=== PATIENT | female | born 1990 | race African-American/Black ===

== ENCOUNTER 2020-10-05 14:46 | Day surgery (SDC) | payer MEDICAID, OTHER ==
[~2020-10-05] VITALS: Ht 165.1 cm; Wt 66.2 kg
[~2020-10-05 14:46] MED LIST: CEPH-368 PO; IBUP-1222 PO; OXYC1TAB14 PO; PREN1TAB56 PO
[2020-10-05 15:20] VITALS: BP 116/75
[2020-10-05] MEDS ORDERED: FENTANYL PF 100 MCG/2ML ONE (15:30)
[2020-10-05] MEDS ORDERED: CHLORHEXIDINE 15 ML UDC MM ONE (15:30)
[2020-10-05] MEDS ORDERED: LACTATED RINGERS 1,000 ML IV SCH (15:30)
[2020-10-05] MEDS ORDERED: MIDAZOLAM 1 MG/ML, 2ML ONE (15:30)
[2020-10-05] MEDS ORDERED: AMPI1.5V BC (15:32)
[2020-10-05] MEDS ORDERED: [UNRECOGNIZED DRUG - OTHER] (15:32)
[2020-10-05] MEDS ORDERED: OXYTOCIN 10 UNITS/ML, 1ML ONE (15:37)
[2020-10-05] MEDS ORDERED: MISOPROSTOL 200 MCG TABLET ONE (15:37)
[2020-10-05] MEDS ORDERED: METHYLERGONOVINE 0.2 MG/ML IM ONE (15:38)
[2020-10-05] MEDS ORDERED: PROMETHAZINE 25 MG/ML, 1ML IVPush PRN (16:00)
[2020-10-05] MEDS ORDERED: HYDROcodone/APAP 7.5-325MG/15ML UDC PO PRN (16:00)
[2020-10-05] MEDS ORDERED: ONDANSETRON 2MG/ML, 2ML IVPush PRN (16:00)
[2020-10-05] MEDS ORDERED: HYDROmorphone 1 MG/ML, 1ML INJ IVPush PRN (16:00)
[2020-10-05] MEDS ORDERED: FENTANYL PF 100 MCG/2ML IV PRN (16:00)
[2020-10-05] MEDS ORDERED: MEPERIDINE/PF 25MG/0.5ML IVPush PRN (16:00)
[2020-10-05] MEDS ORDERED: OXYcodone 5 MG/5 ML ORAL.SOL UDC PO PRN (16:00)
[2020-10-05 16:09] LABS: BASOPHILS % (AUTO) 1 % (0-1); EOSINOPHILS % (AUTO) 1 % (1-7); LYMPHOCYTES % (AUTO) 26 % (22-44); MEAN CORPUSCULAR HEMOGLOBIN 28.5 pg (27.0-34.8); MONOCYTES % (AUTO) 6 % (2-9); NEUTROPHILS % (AUTO) 67 % (42-75); PLATELET COUNT 234 x10^3/uL (130-400); RED BLOOD COUNT 4.47 x10^6/uL (3.82-5.3); RED CELL DISTRIBUTION WIDTH 14.1 % (9.6-15.2)
[2020-10-05] MEDS ORDERED: KETOROLAC 30 MG/1 ML ONE (16:12)
[2020-10-05 16:13] LABS: MD NO
[2020-10-05] MEDS ORDERED: ROCURONIUM 10MG/ML,5ML ONE (16:39)
[2020-10-05] MEDS ORDERED: CEFAZOLIN 1,000 MG ONE (16:39)
[2020-10-05] MEDS ORDERED: PROPOFOL 10 MG/ML, 20ML ONE (16:39)
[2020-10-05] MEDS ORDERED: NEOSTIGMINE 1 MG/ML, 10ML ONE (16:39)
[2020-10-05] MEDS ORDERED: GLYCOPYRROLATE 0.2MG/1ML, 5ML ONE (16:39)
[2020-10-05] MEDS ORDERED: ONDANSETRON 2MG/ML, 2ML ONE (16:39)
[2020-10-05] MEDS ORDERED: DEXAMETHASONE 4 MG/ML, 1ML ONE (16:39)
[2020-10-05] MEDS ORDERED: SUCCINYLCHOLINE 20 MG/ML, 10ML ONE (16:39)
[2020-10-05] MEDS ORDERED: OXYC-293 PO ×2 (16:51)
[2020-10-05] MEDS ORDERED: RHOGAM FROM BLOOD BANK 1 NOTE EA IM/IV ONE (17:00)
[2020-10-05 17:48] VITALS: BP 124/71
== END 2020-10-05 19:50 | disposition home or self-care (01) ==
LOC: OR 14:46
PROVIDERS: ATTEND Obstetrics & Gynecology
DX: O02.1 Missed abortion (principal); Z20.822 Contact with and (suspected) exposure to COVID-19; Z98.890 Other specified postprocedural states; Z80.9 Family history of malignant neoplasm, unspecified; Z81.8 Family history of other mental and behavioral disorders
CPT/HCPCS: 36415; 59820; 85025; 86850; 86900; 87635; 88305; J0330; J0690; J1100; J1885; J2210; J2250; J2405; J2704; J2710; J2790; J3010; J2590